=== PATIENT | male | born 1970 | race Caucasian/White ===

== ENCOUNTER 2019-07-12 05:50 | Observation (INO) ==
[2019-07-12] MEDS ORDERED: ceFAZolin Inj 2gm (Premix) 2 GM/50 ML BAG IV ONE ×2 (06:00→06:04)
[2019-07-12] MEDS ORDERED: LIDOCAINE W/ SODIUM BICARB 0.5 ML SYR SUBD ONE (06:00)
[2019-07-12] MEDS ORDERED: Vancomycin-PHA to Dose IV PRN (06:00)
[2019-07-12] MEDS ORDERED: Lactated Ringers 1,000 ML PRIMARY IV ONE ×2 (06:00→06:04)
[2019-07-12] MEDS ORDERED: Vancomycin 1.5 gm (Premix) 1.5 GM/300 ML PIGGYBACK IV ONE ×4 (06:00→19:15)
[2019-07-12] MEDS ORDERED: Nasal Sanitizer POPSWAB ampule 3 AMP (Nozin) PREOP DOSE ENOS SCH (06:00)
[2019-07-12] MEDS ORDERED: LIDOCAINE W/ SODIUM BICARB 0.5 ML SYR ONE (06:04)
[2019-07-12] MEDS ORDERED: Sodium Chloride 0.9% vial 40 ML ONE (07:07)
[2019-07-12] MEDS ORDERED: BUPIVACAINE 0.25% W/ EPI - 10 ML VIAL ONE (07:07)
[2019-07-12] MEDS ORDERED: BUPivacaine Inj 0.25% PF - 10ml vial ONE (07:07)
[2019-07-12] MEDS ORDERED: Gentamicin Inj 40 MG/ML VIAL ONE (07:07)
[2019-07-12] MEDS ORDERED: LIDOCAINE HCL 2 % 10 ML JELLY URO-JECT TOPICAL ONE ×2 (07:07→08:26)
[2019-07-12] MEDS ORDERED: BACITRACIN 50,000 UNIT VIAL IRRIG ONE (07:08)
[2019-07-12] MEDS ORDERED: Vancomycin Inj 1gm vial ONE ×2 (07:08→11:25)
[2019-07-12] MEDS ORDERED: BUPivacaine Liposome/PF (Exparel) Inj 20ml vial INFIL ONE (07:08)
[2019-07-12] MEDS ORDERED: fentaNYL Inj 250 MCG/5 ML VIAL ONE (07:10)
[2019-07-12] MEDS ORDERED: LIDOCAINE MPF 2% - 5 ML (20 MG/1 ML) ONE (07:11)
[2019-07-12] MEDS ORDERED: ROCURONIUM 10 MG/1 ML - 5 ML VIAL IVP ONE (07:11)
[2019-07-12] MEDS ORDERED: KETOROLAC 30 MG/1 ML VIAL ONE (07:11)
[2019-07-12] MEDS ORDERED: PROPOFOL 10 MG/1 ML (200 MG/20 ML) VIAL IV ONE (07:11)
[2019-07-12] MEDS ORDERED: ONDANSETRON 4 MG/2 ML VIAL ONE (07:11)
[2019-07-12] MEDS ORDERED: TRANEXAMIC ACID 1,000 MG / 10 ML VIAL ONE (08:46)
[2019-07-12] MEDS ORDERED: DEXAMETHASONE PF 10 MG/1 ML VIAL ONE (08:46)
[2019-07-12] MEDS ORDERED: HYDROmorphone 2 MG/1 ML IVP PRN (12:06)
[2019-07-12] MEDS ORDERED: PROMETHAZINE 25 MG/1 ML VIAL IM PRN ×2 (12:06→13:25)
[2019-07-12] MEDS ORDERED: LIDOCAINE W/ SODIUM BICARB 0.5 ML SYR SUBD PRN (12:06)
[2019-07-12] MEDS ORDERED: fentaNYL Inj 100 MCG/2 ML VIAL IVP PRN (12:06)
[2019-07-12] MEDS ORDERED: Prochlorperazine Edisylate Inj 10mg/2ml vial IVP PRN ×2 (12:06→13:25)
[2019-07-12] MEDS ORDERED: diphenhydrAMINE 50 MG/1 ML VIAL IVP PRN (12:06)
[2019-07-12] MEDS ORDERED: Metoclopramide Inj 10 MG/2 ML VIAL IVP PRN (12:06)
[2019-07-12] MEDS ORDERED: Ondansetron ODT Tab 8 MG TAB PO PRN (12:06)
[2019-07-12] MEDS ORDERED: ONDANSETRON 4 MG/2 ML VIAL IVP PRN ×2 (12:06→13:25)
[2019-07-12] MEDS ORDERED: MORPHINE SULFATE 2 MG/1 ML IVP PRN ×2 (12:06→13:25)
[2019-07-12] MEDS ORDERED: Meperidine Inj 50 MG/ML CARPUJECT IVP PRN (12:06)
[2019-07-12] MEDS ORDERED: Lactated Ringers 1,000 ML PRIMARY IV SCH (12:15)
[2019-07-12] MEDS ORDERED: HYDROmorphone 2 MG/1 ML ONE (12:38)
[2019-07-12] MEDS ORDERED: MAGNESIUM 400 MG/5 ML - 30 ML (MILK OF MAGNESIA) PO PRN (13:25)
[2019-07-12] MEDS ORDERED: Ondansetron ODT Tab 4 MG TAB PO PRN (13:25)
[2019-07-12] MEDS ORDERED: HYDROcodone-APAP 7.5 MG-325 MG TABLET PO PRN (13:25)
[2019-07-12] MEDS ORDERED: oxyCODONE-ACETAMINOPHEN 5-325 TAB PO PRN (13:25)
[2019-07-12] MEDS ORDERED: HYDROcodone-APAP 5 MG -325 MG TABLET PO PRN (13:25)
[2019-07-12] MEDS ORDERED: Fleet Enema 133ml RECTAL PRN (13:25)
[2019-07-12] MEDS ORDERED: oxyCODONE/APAP 10/325 Tab 1 EACH TAB PO PRN (13:25)
[2019-07-12] MEDS ORDERED: Vancomycin-PHA to Dose IV SCH (13:25)
[2019-07-12] MEDS ORDERED: BISACODYL 5 MG TABLET PO PRN (13:25)
[2019-07-12] MEDS ORDERED: [UNRECOGNIZED DRUG - OTHER] PO SCH (13:25)
[2019-07-12] MEDS ORDERED: DOCUSATE 100 MG CAPSULE PO PRN (13:25)
[2019-07-12] MEDS ORDERED: oxyCODONE/APAP 7.5/325 Tab 1 TAB TAB PO PRN (13:25)
[2019-07-12] MEDS ORDERED: DIAZEPAM 10 MG/2 ML (5 MG/1 ML) CARPUJECT IVP PRN (13:25)
[2019-07-12] MEDS ORDERED: DIAZEPAM 10 MG TABLET PO PRN (13:25)
[2019-07-12] MEDS ORDERED: MAGNESIUM CITRATE 296 ML SOLUTION PO PRN (13:25)
[2019-07-12] MEDS: ceFAZolin Inj 2gm (Premix) 2 GM/50 ML BAG IV SCH ×2 (15:42→23:40)
[2019-07-12] MEDS: HYDROcodone-APAP 10 MG-325 MG TABLET PO PRN ×2 (19:08→23:40)
[2019-07-12] MEDS ORDERED: ATORVASTATIN 10 MG TABLET PO SCH (21:00)
[2019-07-12] MEDS: Metoprolol TARTRATE Tab 50 MG TAB PO SCH (21:07)
[2019-07-13 04:55] LABS: BASOPHILS # (AUTO) 0 10*3/UL; BASOPHILS % (AUTO) 0 % (0-1); EOSINOPHILS # (AUTO) 0 10*3/UL; EOSINOPHILS % (AUTO) 0 % (0-8); Hematocrit [HCT] 37.7 % (42.0-52.0); Hemoglobin [HGB] 13.1 g/dL (14.0-18.0); MEAN CORPUSCULAR HGB CONC 34.7 g/dL (33-37); MEAN CORPUSCULAR VOLUME 93.8 FL (80-90); MEAN PLATELET VOLUME 10.3 FL (7.4-12.2); MONOCYTES # (AUTO) 0.64 10*3/UL (0.3-0.8); MONOCYTES % (AUTO) 5.4 % (5-15); NEUTROPHILS # (AUTO) 10.26 10*3/UL; NEUTROPHILS % (AUTO) 86.7 % (50-80); RED BLOOD COUNT 4.02 10^6/uL (4.70-6.10)
[2019-07-13 05:04] LABS: BLOOD UREA NITROGEN 15 mg/dL (7-22); BUN/CREATININE RATIO 21.42 (6-20)
[2019-07-13 05:16] LABS: PLATELET MORPHOLOGY COMMENT NORMAL MORPHOLOGY (NORM); RBC MORPHOLOGY COMMENT NORMAL MORPHOLOGY (NORM); WBC MORPHOLOGY COMMENT NORMAL MORPHOLOGY (NORM)
[2019-07-13 06:59] VITALS: RESP 16; TEMP 98.3; O2SAT 92
[2019-07-13] MEDS ORDERED: Triamterene/HCTZ 75/50 Tab 1 TAB TAB PO SCH (09:00)
[2019-07-13 09:08] VITALS: BP 110/64
[2019-07-13] MEDS: Metoprolol TARTRATE Tab 50 MG TAB PO SCH (09:22)
== END 2019-07-13 11:28 | disposition home or self-care (01) ==
LOC: OR 05:50 → MED/SURG 05:50 → OPS 06:01 → MED/SURG 13:02
PROVIDERS: ADMIT Neurological Surgery; ATTEND Neurological Surgery